=== PATIENT | female | born 1955 | race African-American/Black ===

== ENCOUNTER 2017-07-17 11:53 | Outpatient (CLI) | payer MEDICARE, MEDICAID ==
[~2017-07-17 11:53] MED LIST: NORVIR100 MG ORAL; REYATAZ150 MG ORAL; XOPENEX1.25 MG/3 HHN
--- NOTE | 2017-07-17 16:35 | Diagnostic Imaging Report ---
Indication: Chest pain Technique: 3 views of the thoracic spine Comparison: None Findings: There is a mild wedge compression fracture deformity of the T5 vertebral body. No gross paraspinous mass. Pedicles are intact. The bones are osteoporotic Impression: T5 vertebral body compression fracture, age indeterminate. Consider MRI for further evaluation if this is clinically relevant
--- NOTE | 2017-07-17 16:36 | Diagnostic Imaging Report ---
Indication: Reason For Exam: PAIN Technique: 3 views of the right shoulder Comparison: none Findings: Small cystic area is seen in the humeral head. No acute fractures. No dislocations. The joint spaces are preserved Impression: No acute bony trauma
--- NOTE | 2017-07-17 16:38 | Diagnostic Imaging Report ---
Indication: Reason For Exam: PAIN Technique: 3 views of the left shoulder Comparison: None Findings: No acute fractures or dislocations. Joint spaces are preserved. Impression: Negative
--- NOTE | 2017-07-17 16:40 | Diagnostic Imaging Report ---
Indication: Left-sided rib pain Technique: Multiple images of the bilateral ribs Comparison: none Findings: No acute fractures. No gross pneumothorax. Surgical anastomotic adriana are seen in the right upper quadrant of the abdomen Impression: No acute bony trauma
--- NOTE | 2017-07-17 16:50 | Diagnostic Imaging Report ---
Indication: Left ankle pain Technique: 3 views of the ankle Comparison: none Findings: There is a small plantar spur. No acute fractures. No dislocations. The joint spaces are preserved. Impression: No acute process
== END 2017-07-17 13:53 | disposition home or self-care (01) ==
LOC: RAD 11:53
DX: M25.572 Pain in left ankle and joints of left foot (principal); S29.9XXA Unspecified injury of thorax, initial encounter; M54.9 Dorsalgia, unspecified; R07.81 Pleurodynia; M25.512 Pain in left shoulder; M25.511 Pain in right shoulder; S22.050A Wedge compression fracture of T5-T6 vertebra, initial encounter for closed fracture; X58.XXXA Exposure to other specified factors, initial encounter; Y93.9 Activity, unspecified; Y92.9 Unspecified place or not applicable
CPT/HCPCS: 71110; 72070

== ENCOUNTER 2017-07-26 09:29 | Outpatient (CLI) | payer MEDICARE, MEDICAID ==
--- NOTE | 2017-07-26 13:51 | Diagnostic Imaging Report ---
Indication: Back pain Technique: MRI examination of the thoracic spine was performed in a 1.5 Mary magnet. Sequences obtained include sagittal and axial T1 and T2 fast spin echo, and sagittal STIR. Comparison: none Findings: Bone marrow signal normal. There is loss of height and desiccation of several intervertebral discs especially in the mid part of the thoracic spine. Marginal spurs are noted involving the vertebral endplates and facets. There is no central stenosis, cord compression or significant neural foraminal narrowing appreciated. No soft tissue mass or abnormal fluid collections are identified. IMPRESSION: Mild degenerative changes of thoracic spine
== END 2017-07-26 11:29 | disposition home or self-care (01) ==
LOC: MRI 09:29
DX: M54.9 Dorsalgia, unspecified (principal)
CPT/HCPCS: 72146

== ENCOUNTER → 2017-10-06 | Outpatient (CLI) | payer MEDICARE, MEDICAID ==
--- NOTE | 2017-10-06 16:07 | Diagnostic Imaging Report ---
Indication: Neck mass, lump on neck, difficulty swallowing Technique: No IV contrast, per referring physician request Spiral acquisitions obtained through the neck Multiplanar reconstructions were generated. Total dose length product 556.85 mGycm. CTDIvol(s) 19.21 mGy. Radiation dose was minimized using automated exposure control Comparison: none Findings: Anterior to the larynx to the right of midline, there is a lobular versus 2 adjacent masses which measures 1.6 cm AP by 2.6 cm transverse by 3.8 cm craniocaudad. This demonstrates similar density and surface texture to the thyroid. The mass is hyperattenuating diffusely and fairly homogeneous in appearance with some internal slight low attenuation and septation. The right thyroid lobe is immediately adjacent but not definitely connected. The thyroid itself demonstrates some calcifications surgical clips at the inferior aspect of the right lower pole. Other surgical clips are seen anterior to the left upper pole and superior to the right upper pole. It is diffusely bulky but no discrete masses are demonstrated. No other evidence of cervical mass or adenopathy. The bilateral parotid and submandibular glands appear unremarkable. The nasopharynx, oropharynx, hypopharynx and larynx appear unremarkable. The proximal trachea appears unremarkable. The included upper mediastinum appears unremarkable. The included lung apices are clear. No supraclavicular mass or adenopathy. The included sinuses are clear. The bones are unremarkable except for mild degenerative spondylosis changes.. There is evidence of prior bilateral tooth extractions. Impression: 1.6 x 2.6 x 3.8 cm attenuation right neck mass versus 2 immediately adjacent masses, just anterior and lateral to the larynx just superior anterior and to the upper pole of the right thyroid lobe. This is suspicious for neoplasm. Appearance is nonspecific. High attenuation and similarity in texture to the adjacent thyroid raises possibility of thyroid origin, but other etiologies including adenopathy are surgically possible. Consider tissue sampling for further evaluation Surgical clips adjacent to the thyroid. Thyroid itself appears intact, somewhat prominent but without discrete mass. Correlate with surgical history Incidental findings of minimal degenerative spondylosis, prior tooth extractions The CT scanner at [facility] is accredited by the [employer] and the scans are performed using protocols designed to limit radiation exposure to as low as reasonably achievable to attain images of sufficient resolution adequate for diagnostic evaluation.
== END | disposition home or self-care (01) ==
LOC: RAD 09:51
DX: R22.1 Localized swelling, mass and lump, neck (principal); M47.9 Spondylosis, unspecified
CPT/HCPCS: 70490

== ENCOUNTER → 2018-09-17 | Outpatient (CLI) | payer MEDICARE, MEDICAID ==
--- NOTE | 2018-09-17 18:31 | Diagnostic Imaging Report ---
Indication: Lump on right side of neck, previously present but now increased Technique: Spiral acquisitions obtained through the neck. Multiplanar reconstructions were generated.No IV contrast utilized, per referring physician request. Total dose length product 575.13 mGycm. CTDIvol(s) 18.96 mGy. Dose reduction achieved using automated exposure control Comparison: 10/06/2017 Findings: Again demonstrated is a somewhat high attenuation bilobed mass to the right of midline anterior to the larynx and proximal trachea. Current dimensions are 4 cm long axis dimension by 2.7 x 2.1 cm orthogonal short axis dimensions. The lesion appears to be stable or minimally increased in size since the previous exam. It is adjacent to the upper pole of the right thyroid lobe that appears to be from it by a fat plane. The thyroid itself is somewhat prominent, is overall homogeneous in attenuation. Surgical clips again demonstrated adjacent to the lower pole. No other cervical mass. No cervical adenopathy demonstrated. The salivary glands appear unremarkable. The upper aerodigestive tract appears unremarkable. The bilateral parapharyngeal spaces are clear and symmetric. The included upper lungs and mediastinum are unremarkable. The bones are unremarkable. Impression: 4 x 2.7 x 2.1 cm bilobed right neck mass as described, stable or minimally increased in size from previous study of 10/06/2017. No other significant findings Appearance is nonspecific; high attenuation raises possibility that this is of thyroid origin. As previously recommended, consider tissue sampling if not already done. No other significant findings The CT scanner at [facility] is accredited by the [employer] and the scans are performed using protocols designed to limit radiation exposure to as low as reasonably achievable to attain images of sufficient resolution adequate for diagnostic evaluation.
== END | disposition home or self-care (01) ==
LOC: CAT 13:26
DX: R22.1 Localized swelling, mass and lump, neck (principal)
CPT/HCPCS: 70490